=== PATIENT | female | born 1945 | race Caucasian/White ===

== ENCOUNTER 2025-02-27 08:22 | Inpatient (IN) | payer MEDICARE, OTHER, SELFPAY ==
--- NOTE | 2025-02-11 13:23 | CM ---
Addendum entered by Conchita Sheffield RN 02/12/25 13:58:
Demographics: confirmed
Living situation: lives with daughter,
Support Person Post Operatively:
History of
VN: no
SNF: no
Outpatient: [facility]
Has patient purchased required equipment: yes, walker, toilet seat, cane
PCP: Confirmed
Pharmacy: [facility]
Post Operative Discharge Plan: Outpatient PT.
Original Note:
CM reviewed medical record. EVANGELISTA left message for orthopedic [place] .
[2025-02-13 14:13] LABS: Hematocrit 46.0 % (37.0-47.0); Hemoglobin 14.6 g/dL (12.0-16.0); Mean Corp Hgb Conc. 31.7 g/dL (33.0-37.0); Mean Corpuscular Volume 89.8 fL (81.0-99.0); Platelet Count 197 10^3/uL (130-400); Red Cell Dist. Width 14.4 % (11.5-14.5)
[2025-02-13 14:20] VITALS: BMI 33.4
[2025-02-13 14:31] LABS: ALT (SGPT) 18 U/L (0-35); AST (SGOT) 19 U/L (14-36); Albumin 4.5 g/dl (3.5-5.0); Alkaline Phosphatase 60 U/L (38-126); Blood Urea Nitrogen 22 mg/dl (7-17); Calcium 10.4 mg/dl (8.4-10.2); Carbon Dioxide 27 mmol/L (22-30); Chloride 104 mmol/L (98-107); Estimated Creatinine Clearance 66 ml/min; Glucose 125 mg/dl (70-99); Potassium 4.5 mmol/L (3.5-5.1); Sodium 138 mmol/L (135-145); Total Protein 7.2 g/dl (6.3-8.2); eGFR > 60.00
[2025-02-13 14:34] LABS: Glycohemoglobin (HgbA1c) 7.4 % (4.0-5.6)
[2025-02-13 14:58] VITALS: BMI 33.4
[2025-02-27] VITALS (14 sets, daily range): BP systolic 120–136; BP diastolic 50–88; PULSE 80; O2SAT 96
[2025-02-27] MEDS: CELEBREX 200 MG PO (09:49)
[2025-02-27] MEDS: TYLENOL 650 MG PO ×3 (09:49→20:51)
[2025-02-27] MEDS: NORMOSOL-R/PLASMALYTE-A 1000 IV ×2 (10:04→15:58)
[2025-02-27 10:06] LABS: Glucose - Point of Care 88 mg/dl (70-99)
--- NOTE | 2025-02-27 10:37 | W.PN.UPDATE ---
Update Note
Progress Note Update
R knee OA s/p R TKA w/ Dr Webb 02/27/25
DVT prophylaxis - Eliquis at modified dosing, b/l venous foot pumps
- Eliquis 5 mg PO BID dosing to be resumed POD 3 if hemodynamically stable
HTN - + parameters - monitor BP
PAF with intermittent palpitations
PAT
- Monitor on tele
- Continue Metoprolol
- Eliquis as stated above
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
- Resume home meds
- Add SSI AC, low dose Lantus HS to accomodate for potential post-surgical BS elevations
- Diabetic, carb controlled diet
- Would benefit from Cefadroxil upon d/c
GERD - continue PPI therapy
IBS w/ diarrhea - start Colace initially for post-op bowel regimen
- Will add Senna in 48-72 hours if no BM
- Early mobility as tolerated, adequate hydration, and the minimization of opioids was recommended troy-op
HLD
Childhood glomerulonephritis
Colon polyps
Diverticulosis
Remote migraines
Hypothyroidism
Squamous cell carcinoma, status post Mohs
Psoriasis
Anxiety
Depression
Vitamin D deficiency
Mild leukocytosis, asymptomatic
Mild hypercalcemia
Obesity, BMI 33.4
[2025-02-27] MEDS: DILAUDID 0.25 MG IV ×4 (12:41→13:56)
[2025-02-27 12:54] LABS: Glucose - Point of Care 110 mg/dl (70-99)
[2025-02-27] MEDS: SUBLIMAZE 25 MCG IV (13:03)
[2025-02-27] MEDS: ROXICODONE 5 MG PO ×3 (14:22→22:05)
[2025-02-27 15:03] LABS: Glucose - Point of Care 158 mg/dl (70-99)
--- NOTE | 2025-02-27 15:29 | PTCARENOTE ---
Patient admitted from [facility] post right total knee arthroplasty.The patient is alert and oriented.She rates her pain at a 5 out of 10.The right knee dressing is intact without drainage.Neurovascular assessment is within normal limits and ongoing.Vital
signs are stable.The patient is in her bed with the call anaya in place.
[2025-02-27] MEDS: NOVOLOG FLEXPEN-MODERATE RESISTANCE SC (16:00)
[2025-02-27] MEDS: PROTONIX 20 MG PO (16:01)
[2025-02-27] MEDS: COZAAR PO (16:01)
[2025-02-27] MEDS: NOVOLOG FLEXPEN-MODERATE RESISTANCE 1 UNITS SC (16:04)
[2025-02-27] MEDS: ANCEF 5 IV (17:32)
[2025-02-27] MEDS: BACTROBAN 2% OINTMENT 1 APPLIC NASAL (20:51)
[2025-02-27] MEDS: COLACE 100 MG PO (20:51)
[2025-02-27] MEDS: ELIQUIS 2.5 MG PO (20:52)
[2025-02-27 21:56] LABS: Glucose - Point of Care 184 mg/dl (70-99)
[2025-02-27] MEDS: LANTUS 0.05 UNITS SC (22:05)
[2025-02-27] MEDS: SYNTHROID 112 MCG PO (22:12)
[2025-02-27] MEDS: NEURONTIN 300 MG PO (22:12)
[2025-02-27] MEDS: VITAMIN B-12 1000 MCG PO (22:13)
[2025-02-27] MEDS: TOPROL XL 25 MG PO (22:13)
[2025-02-27] MEDS: VITAMIN D3 (cholecalciferol) 25 MCG PO (22:14)
[2025-02-27] MEDS: TYLENOL PO (23:49)
[2025-02-28] MEDS: ANCEF 5 IV (02:02)
[2025-02-28 03:10] VITALS: BP 115/60
[2025-02-28] MEDS: TYLENOL PO (04:17)
[2025-02-28] MEDS: ROXICODONE 5 MG PO ×2 (06:26→10:34)
[2025-02-28] MEDS: TYLENOL 650 MG PO (06:26)
[2025-02-28 07:00] VITALS: BP 114/49
[2025-02-28 08:22] LABS: Glucose - Point of Care 176 mg/dl (70-99)
[2025-02-28] MEDS: CRESTOR 5 MG PO (08:39)
[2025-02-28] MEDS: COLACE 100 MG PO (08:40)
[2025-02-28] MEDS: ELIQUIS 2.5 MG PO (08:40)
[2025-02-28] MEDS: PROTONIX 20 MG PO (08:40)
[2025-02-28] MEDS: COZAAR 50 MG PO (08:40)
[2025-02-28] MEDS: BACTROBAN 2% OINTMENT 1 APPLIC NASAL (08:41)
[2025-02-28] MEDS: FARXIGA 10 MG PO (08:41)
[2025-02-28] MEDS: NOVOLOG FLEXPEN-MODERATE RESISTANCE 1 UNITS SC (08:41)
--- NOTE | 2025-02-28 10:26 | W.PN.ORTHO ---
Today's Communication / Plan
-
Await PT and OT recs.
D/c later today if remaining clinically stable.
Assessment
.
Distal Motor Intact: Yes
Dressing:
Clean, dry and intact.
Assessment:
R knee OA s/p R TKA w/ Dr Webb 02/27/25
DVT prophylaxis - Eliquis at modified dosing, b/l venous foot pumps
- Eliquis 5 mg PO BID dosing to be resumed POD 3 since hemodynamically stable
HTN - + parameters - BPs overall stable
PAF with intermittent palpitations
PAT
- Maintaining NSR on tele
- Continue Metoprolol
- Eliquis as stated above
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
- Resumed home meds
- Added SSI AC, low dose Lantus HS to accommodate for potential post-surgical BS elevations during admission
- Diabetic, carb controlled diet
- Would benefit from Cefadroxil upon d/c
GERD - continue PPI therapy
IBS w/ diarrhea - start Colace initially for post-op bowel regimen
- Will add Senna in 48-72 hours if no BM
- Early mobility as tolerated, adequate hydration, and the minimization of opioids was recommended troy-op
HLD
Childhood glomerulonephritis
Colon polyps
Diverticulosis
Remote migraines
Hypothyroidism
Squamous cell carcinoma, status post Mohs
Psoriasis
Anxiety
Depression
Vitamin D deficiency
Mild leukocytosis, asymptomatic
Mild hypercalcemia
Obesity, BMI 33.4
Plan
.
Surgery / Date: R TKA w/ Dr Webb 02/27/25
DVT Prophylaxis: Other (Eliquis )
Activity:
Out of bed.
PT/OT
Discharge Plan: Home w/ Outpatient PT
Subjective
.
.:
Patient resting comfortably in her bed.
R knee pain fairly well controlled w/ current pain meds.
Denies any new significant complaints.
Eager for potential d/c today.
Vital Signs and Labs
.
Vital Signs and Labs:
Lab Results
02/13/25 11:39
02/13/25 11:39
Temp Pulse Resp BP Pulse Ox
98.8 F 57 17 114/49 94
02/28/25 07:00 02/28/25 07:00 02/28/25 07:00 02/28/25 07:00 02/28/25 07:00
Non-invasive Hgb result: 13.2
Physical Exam
-
HEENT: No pallor, cyanosis, or jaundice. Throat clear.
NECK: Supple. No JVD.
RESPIRATORY: Lungs clear to auscultation.
CVS: S1, S2 normal. RRR.�
ABDOMEN: Soft, non-tender. No distension.
EXTREMITIES: Post-surgical, expected R knee edema. Strength equal, no calf pain with palpation/dorsiflexion. Calves soft.
[employer]ANTRY [employer]: AOx3. No focal deficits. outside energy sales representatives grossly intact
--- NOTE | 2025-02-28 10:35 | CM ---
Cm reviewed medical record. Patient and family confirmed outpatient PT appointment.
PLAN: home with family and outpatient PT.
[2025-02-28 11:00] VITALS: BP 112/51
[2025-02-28 11:10] VITALS: BP 112/50; PULSE 61; O2SAT 89
--- NOTE | 2025-02-28 11:28 | W.DS.TRANS ---
DC Summary - [employer]
-
Discharge Instructions:
Sleep Apnea Risk Low
Discharge Diagnosis/Procedures R knee OA s/p R TKA w/ Dr Webb 02/27/2025
Diet Diabetic, Carb Controlled
Additional Diets Adequate hydration, minimize opioids, and wear
TEDs stockings to prevent low blood pressure/
dizziness.
Activity As tolerated,With Walker
Driving Restrictions Not until seen by your Dr
Bathing Restrictions OK to Shower
Other Services PT
Wound Care Dressing to be removed 1 week post-surgery
Instructions:
Stand-Alone Forms: Total Hip/Knee Replacement D/C
Changes to Home Medications: Yes
Discharge Medications:
DC Medications w/original date entered in [employer]
apixaban 5 mg tablet (Eliquis) 5 mg PO BID 02/12/25
Held on 02/28/25. Instructions: Resume on 03/02/25.
cholecalciferol (vitamin D3) 25 mcg (1,000 unit) tablet (Vitamin D3) 25 mcg PO HS 02/12/25
cyanocobalamin (vitamin B-12) 1,000 mcg tablet 1,000 mcg PO HS 02/12/25
empagliflozin 25 mg tablet (Jardiance) 25 mg PO DAILY 02/12/25
levothyroxine 112 mcg tablet 112 mcg PO HS 02/12/25
metoprolol succinate 25 mg tablet,extended release 24 hr 25 mg PO HS 02/12/25
roflumilast 0.3 % topical cream (Zoryve) 1 applic topical DAILYPRN PRN psoriasis 02/12/25
rosuvastatin 5 mg tablet 5 mg PO DAILY 02/12/25
mupirocin 2 % topical ointment 1 applic intranasal BID #1 tube 02/13/25
cefadroxil 500 mg capsule 500 mg PO BID #14 caps 02/18/25
gabapentin 300 mg capsule 300 mg PO HS neuropathic pain/sleep #10 caps 02/18/25
ondansetron HCl 4 mg tablet 4 mg PO Q6H PRN nausea and vomiting #30 tabs 02/18/25
oxycodone 5 mg tablet 5 - 10 mg (1 - 2 x 5 mg) PO Q6H PRN moderate-severe pain #30 tabs 02/18/25
Saccharomyces boulardii 250 mg capsule (Florastor) 250 mg PO BID #14 caps 02/28/25
acetaminophen 500 mg tablet (Tylenol Extra Strength) 1,000 mg (2 x 500 mg) PO Q6H #60 tabs 02/28/25
apixaban 2.5 mg tablet (Eliquis) 2.5 mg PO BID #3 tabs 02/28/25
ciclopirox 0.77 % topical cream 1 applic topical DAILYPRN PRN FUNGAL SKIN INFECTION #0 grams 02/28/25
docusate sodium 100 mg capsule 100 mg PO BID #30 caps 02/28/25
losartan 50 mg tablet 50 mg PO DAILY #1 tab 02/28/25
omeprazole 20 mg tablet,delayed release 20 mg PO DAILY #1 tab 02/28/25
polymyxin B sulfate 10,000 unit-trimethoprim 1 mg/mL eye drops 1 drp ophthalmic (eye) Q3H #10 mL 02/28/25
sennosides 8.6 mg tablet (Tangela-joel) 17.2 mg (2 x 8.6 mg) PO BID PRN constipation #30 tabs 02/28/25
Home Medication Changes
cefadroxil 500 mg capsule 500 mg PO BID #14 caps 02/18/25
gabapentin 300 mg capsule 300 mg PO HS neuropathic pain/sleep #10 caps 02/18/25
ondansetron HCl 4 mg tablet 4 mg PO Q6H PRN nausea and vomiting #30 tabs 02/18/25
oxycodone 5 mg tablet 5 - 10 mg (1 - 2 x 5 mg) PO Q6H PRN moderate-severe pain #30 tabs 02/18/25
Saccharomyces boulardii 250 mg capsule (Florastor) 250 mg PO BID #14 caps 02/28/25
acetaminophen 500 mg tablet (Tylenol Extra Strength) 1,000 mg (2 x 500 mg) PO Q6H #60 tabs 02/28/25
apixaban 2.5 mg tablet (Eliquis) 2.5 mg PO BID #3 tabs 02/28/25 - until POD 3
docusate sodium 100 mg capsule 100 mg PO BID #30 caps 02/28/25
omeprazole 20 mg tablet,delayed release 20 mg PO DAILY #1 tab 02/28/25
sennosides 8.6 mg tablet (Tangela-joel) 17.2 mg (2 x 8.6 mg) PO BID PRN constipation #30 tabs 02/28/25
Pending Results: No
[2025-02-28 11:46] VITALS: BP 111/51; PULSE 60
[2025-02-28 11:46] LABS: Glucose - Point of Care 156 mg/dl (70-99)
[2025-02-28 19:28] LABS: Hepatitis C Antibody Negative (Negative)
== END 2025-02-28 12:34 | disposition home or self-care (01) | DRG 470 ==
LOC: 2 SOUTH 08:22
PROVIDERS: ADMITTING PHYSICIAN Orthopaedic Surgery; FAMILY PHYSICIAN Family Medicine; REFERRING PHYSICIAN Internal Medicine Cardiovascular Disease
PROC: 0SRC069 Replacement of Right Knee Joint with Oxidized Zirconium on Polyethylene Synthetic Substitute, Cemented, Open Approach (ICD-10-PCS; 2025-02-27)
DX: M17.11 Unilateral primary osteoarthritis, right knee (principal); I47.19 Other supraventricular tachycardia; I48.0 Paroxysmal atrial fibrillation; E11.9 Type 2 diabetes mellitus without complications; I10 Essential (primary) hypertension; K21.9 Gastro-esophageal reflux disease without esophagitis; K58.0 Irritable bowel syndrome with diarrhea; E78.5 Hyperlipidemia, unspecified; E66.9 Obesity, unspecified; Z68.33 Body mass index [BMI] 33.0-33.9, adult; Z79.4 Long term (current) use of insulin
CPT/HCPCS: 36415; 73560; 80053; 82962; 83036; 85027; 86803; 87070; 97110; 97116; 97162; 97167; 97530; C1713; C1776